=== PATIENT | female | born 2000 | race Two or more races ===

== ENCOUNTER 2025-02-11 09:30 | Emergency (ER) | payer MEDICAID, SELFPAY ==
[2025-02-11 10:01] VITALS: BP 116/71; PULSE 89; RESP 16; TEMP 37.1; O2SAT 98
--- NOTE | 2025-02-11 10:11 | XR_ITS ---
Examination: Complete OB ultrasound greater than 14 weeks Date and time of exam: February 11, 2025, 10:22 AM Indications: 18 week by history with intermittent pelvic cramping beginning 3 days ago Findings: Viable intrauterine single fetus with single amniotic sac presentation breech Cardiac motion 153 BPM Placenta anterior grade 1. Umbilical cord insertion 3 vessel seen Amniotic fluid normal spine maternal right Cervix 3.0 cm Right ovary 3.1 cm arterial flow. Left ovary 3.5 cm arterial flow. Composite estimated gestational age based on BPD, head circumference, abdominal circumference, femur length is 19 weeks 0 days Estimated weight 264 g. Survey of intracranial anatomy, spinal anatomy, abdominal anatomy, four-chamber heart performed with no abnormalities identified. Impression: Viable intrauterine gestation breech presentation Placenta anterior grade 1 no abruption.
--- NOTE | 2025-02-11 10:12 | EDNOTE_ITS ---
<Statement entered by Caridad Santana MD - 02/11/25 17:35> As co-signing physician, I was present and available for consult prn. I concur with the plan and care as documented by the midlevel provider. ED General RME/HPI General Chief complaint: Abdominal Pain Stated complaint: LOWER ABD PAIN Time Seen by Provider: 02/11/25 09:52 Arrival date/time: 02/11/25 09:30 CC: Lower abdominal pain HPI ongoing for the past 3 to 4 days. The patient is a G1, P1 at estimated 19 weeks with no follow-up. Dad denies any vaginal bleeding vaginal discharge low back pain stating that she has some mild cramping in her abdomen. Related Data Previous Rx's ?Medication ?Instructions ?Recorded cephalexin 500 mg capsule 500 mg PO BID #14 caps 02/11 Allergies Allergy/AdvReac Type Severity Reaction Status Date / Time No Known Allergies Allergy Verified 02/11/25 09:32 Review of Systems Review of Systems Narrative Review of Systems: GEN: No fever, no chills, no weight loss EYES: No discharge, no visual changes, no pain HEENT: No ear pain, no congestion, no sore throat PULM: No shortness of breath, no cough, no congestion CV: No chest pain, no dyspnea on exertion, no palpitations GI: No nausea, no vomiting, no diarrhea, no pain, no constipation : No frequency, no urgency, no dysuria MUSC/SKEL: No joint pain, no back pain SKIN: No rash PSYCH: No hallucinations, no depression HEME/LYMPH: No easy bleeding or bruising tendencies NEURO: No weakness, no headache Past Medical History Social History SMOKING STATUS: Never smoker ED Exam Narrative Physical exam: [General: Not in any acute distress Head normocephalic HEENT: Within acceptable limits Neck is supple nontender Chest equal chest rise nontender to palpation Respiratory: Clear to auscultation no wheezes crackles or rubs CV: Rate rhythm is regular no murmurs rubs or clicks Abdomen is distended secondary to , soft nontender, pain is described with motion of her hands at the side of the base of her distended abdomen in the both right and left lower quadrant. Back: No CVA tenderness no spinous process tenderness from cervical spine thoracic and lumbar spine Skin: Intact no petechiae rash induration ulceration or crepitus Extremities: Moving all extremity against resistance cap refill less than 2 seconds neurosensory intact Neuro: Awake alert oriented x3 Glascow coma 15 no focal deficits] Course Quality Measures none Orders Category Date Time Status US OB >= 14 weeks Fetus Stat Exams 02/11/25 10:11 Completed Urinalysis Stat Lab 02/11/25 10:18 Completed Vital Signs Vital signs: Vital Signs Temperature 98.8 F 02/11/25 10:01 Pulse Rate 89 02/11/25 10:01 Respiratory Rate 16 02/11/25 10:01 Blood Pressure 116/71 02/11/25 10:01 Pulse Oximetry (%) 98 02/11/25 10:01 Oxygen Delivery Method Room Air 02/11/25 10:01 [facility] Patient data External records reviewed:: [facility] previous records Clinical information provided by:: none Social determinants that could affect healthcare access:: none Patient has the following chronic illnesses:: None How is presenting disease/condition affected by chronic disease/condition?: uneffected by Evaluation data The following diagnostics were reviewed and interpreted by me:: lab results and radiology exam(s) Lab and/or radiology exams considered but not ordered:: Ultrasound shows a single IUP 19 weeks 0 days Interpretation Summary: Suspect round ligament pain however we will do an ultrasound to determine that the status. Medications Medications considered but not ordered:: None Medication administrations:: None Consultations Consultation(s) initiated? (list below): No Diagnosis Differential Diagnosis ED Complaint MDM: SAB multiple gestation IUP Most likely diagnosis given after review of the tests above:: Round ligament pain IUP UTI Admission Indicated Admission indicated?: not indicated Explain why admission is indicated or not indicated:: Stable for outpatient follow-up Admission Request Was there a request for admission?: No Disposition Plan Disposition Plan: Discharge Discharge Attestation Discharge Attestation: The patient and all family members were given an opportunity to ask questions and understood the discharge instructions. Discharge instructions specifically effects, indications for sooner follow up or return to the emergency department, and the expected course of current diagnosis. Patient condition: Stable Medical Decision Making Differential Diagnosis Differential Diagnosis: SAB multiple gestation IUP Lab Data Labs: Lab Results 02/11/25 Range/Units 10:18 Ur Collection Type Clean Catch Urine Color Yellow (Lt Yel-Yel) Urine Clarity Turbid A (Clear/Hazy) Urine pH 7.5 H (5.0-7.0) Ur Specific [place] 1.017 (1.001-1.035) Urine Protein Negative (Neg - Trace) Urine Glucose (UA) Negative (Negative) Urine Ketones Negative (Negative) Urine Blood Negative (Negative) Urine Nitrite Negative (Negative) Urine Bilirubin Negative (Negative) Urine Urobilinogen (Auto) Negative (0.0-1.0) mg/dL Ur Leukocyte Esterase Positive (Negative) Urine RBC 1 (0-3) /hpf Urine WBC 10 H (0-5) /hpf Ur Squamous Epith Cells 33 H (0-5) /hpf Calcium Oxalate Crystal 1+ A (None) Amorphous Crystals Present A (Absent) Urine Bacteria 2+ A (None) Urine Yeast (Budding) Present A (None) Discharge Plan Plan Patient Disposition: HOME (Self Care) Patient condition on transfer: Stable Prescriptions/Referrals Prescriptions/Med Rec: New cephalexin 500 mg capsule 500 mg PO BID Qty: 14 0RF Problem List Clinical Impression: Pain of round ligament, , UTI (urinary tract infection) Patient/Caregiver Discharge Instructions Education Materials: Adapting to Second ..., ED CYSTITIS Female Adult Additional Instructions: Take medication as prescribed follow-up with an MANUFACTURING AUTOMATION ENGINEER as quickly as possible. Print Language: Mongolian Stand Alone Forms: Dee Award Info., Work/School Release, Patient Portal Info Letter PA/KAREN Supervising Physician PAULINE/KAREN Supervising Physician: Leonidas Pelaez ENP
[2025-02-11 10:27] LABS: Collection Type, Urine Clean Catch
[2025-02-11 11:06] LABS: Bacteria,Urine 2+; Bilirubin,Urine Negative (Negative); Blood,Urine Negative (Negative); Budding Yeast,Urine Present; Clarity,Urine Turbid (Clear/Hazy); Color,Urine Yellow (Lt Yel-Yel); Glucose, Urine Negative (Negative); Ketones,Urine Negative (Negative); Leukocyte Esterase,Urine Positive (Negative); Nitrite,Urine Negative (Negative); PH,Urine 7.5 (5.0-7.0); Protein,Urine Negative (Neg - Trace); Specific Gravity,Urine 1.017 (1.001-1.035); Squamous Epithelial Cell,Urine 33 /hpf (0-5); Urobilinogen,Urine Negative mg/dL (0.0-1.0)
[2025-02-11 11:13] LABS: Amorphous Crystals,Urine Present (Absent); Calcium Oxalate Crystals,Urine 1+; RBC,Urine 1 /hpf (0-3); WBC,Urine 10 /hpf (0-5)
== END 2025-02-11 11:30 | disposition home or self-care (01) ==
LOC: SERX 11:21
PROVIDERS: Registered Nurse General Practice; Emergency Provider Emergency Medicine; PCP Family Medicine
DX: O26.892 Other specified pregnancy related conditions, second trimester (principal); R10.2 Pelvic and perineal pain; O23.42 Unspecified infection of urinary tract in pregnancy, second trimester; N30.90 Cystitis, unspecified without hematuria; Z3A.19 19 weeks gestation of pregnancy
CPT/HCPCS: 76805; 81001; 99284

== ENCOUNTER 2025-06-21 03:19 | Inpatient (IN) | payer MEDICAID, SELFPAY ==
[2025-06-21] VITALS (28 sets, daily range): BP systolic 107–130; BP diastolic 53–83; PULSE 57–94; RESP 16–100; TEMP 36.6–36.9; O2SAT 91–98; BMI 26.8
--- NOTE | 2025-06-21 05:34 | XR_ITS ---
Examination: Complete OB ultrasound greater than 14 weeks Date and time of exam: June 21, 2025 0609 hours INDICATIONS: Labor contractions beginning 2:00 AM this morning Findings: Viable intrauterine single fetus with single amniotic sac presentation cephalic Cardiac motion 148 BPM Placenta anterior grade 3 Umbilical cord insertion seen Amniotic fluid index 6.8 cm spine anterior Cervix 3.0 cm Ovaries obscured by bowel gas. Composite estimated gestational age based on BPD, head circumference, abdominal circumference, femur length is 37 weeks 2 days Estimated weight 3026 g. Survey of intracranial anatomy, spinal anatomy, abdominal anatomy, four-chamber heart performed with no abnormalities identified. Impression: Viable intrauterine gestation cephalic presentation.
[2025-06-21] MEDS: fentaNYL CIT INJ 50 mCg/ML AMP 2ML 100 MCG IVP ×2 (06:02→08:10)
--- NOTE | 2025-06-21 06:39 | PD.LDHP ---
Documentation for date of: 06/21/25 OB Labor/Induct. HPI History of Present Illness Chief complaint: Contractions : 1 Para: 0 Term pregnancies: 0 pregnancies: 0 Living children: 0 History of Abortions: Spontaneous and Elective: 0 History of Vaginal deliveries: 0 History of sections: No History of : No [place]: 07/08/25 History of present illness: 25-year-old G1, P0 at 37 weeks and 4 days presented to labor and delivery triage with contractions that started last night. On presentation patient was noted to be 1 to 2 cm with 50% effacement. She was For 2 hours and rechecked and she progressed to 6 cm with 90% effaced and -2 station. Patient denied any leakage of fluid or vaginal bleeding reported adequate movements. Patient received care at [facility]. Records are available for review. History of Present Adequate Care: Yes Labs Labs: Positive: Rubella Titre, Negative: RPR, Hepatitis B, HIV, Chlamydia, Gonorrhea and Group Beta Strep and Unknown: Herpes Type 1 and Herpes Type 2 Review of Systems Review of Systems Systems Reviewed: All systems reviewed, normal except as documented Past Medical History Surgical History SURGICAL: Negative Section Meds Home Medications and Allergies Allergies Allergy/AdvReac Type Severity Reaction Status Date / Time No Known Allergies Allergy Verified 06/21/25 03:24 OB Exam Physical Exam Vital signs: Temp Pulse Resp BP Pulse Ox 98.1 F 81 18 130/83 98 06/21/25 03:23 06/21/25 03:32 06/21/25 03:23 06/21/25 03:32 06/21/25 04:17 Constitutional Constitutional: no acute distress Routine HEENT Exam Head: Present normocephalic and atraumatic Eye: Present EOMI and PERRL ENT: Present mucous membranes moist Routine Neck Exam Neck: Present supple and trachea midline Routine Cardiovascular Exam Cardiovascular: Present RRR Routine Abdominal Exam Abdominal: Present soft and normoactive bowel sounds Detailed Labor and Delivery Exam Dilation (cm): 6 Effacement (%): 90 Cervix position: mid station: -2 Presentation: Vertex Membranes: intact Baseline heart rate: 135 monitor accelerations: 15x15 monitor decelerations: None retort feeder ground bone variability: Average (6-10) Routine Extremities Exam Extremities: Present full ROM Routine Skin Exam Skin: Present intact, dry and warm Routine Neurological Exam Neurological: Present alert, oriented X3 and CN II-XII intact Routine Psychiatric Exam Psychiatric: Present normal affect and normal thought process OB Assessment & Plan Assessment and Plan (1) Uterine contractions: Status: Acute (2) Active labor at term: Status: Acute Assessment and plan: Admit to inpatient status on delivery Routine admission orders Spontaneous labor for now as patient is making progress, oxytocin augmentation if needed Anticipate vaginal delivery
[2025-06-21 06:54] LABS: Amphetamine/Metham Scrn,Ur OB Negative (Negative); Benzoylecgonine Screen, Ur OB Negative (Negative); Opiate Screen,Urine OB Negative (Negative); THC Screen,Urine OB Negative (Negative)
[2025-06-21 06:56] LABS: Basophils # (Auto) 0.1 Thou/mm3 (0.0-0.2); Basophils % (Auto) 0 % (0-2.5); Eosinophils # (Auto) 0.0 Thou/mm3 (0.0-0.5); Eosinophils % (Auto) 0 % (0-10); Hematocrit 39.8 % (36.0-46.0); Hemoglobin 14.1 g/dL (12.0-16.0); Immature Granulocytes Auto 0.08 Thou/mm3 (0.00-0.00); Lymphocytes # (Auto) 2.6 Thou/mm3 (1.0-4.8); Lymphocytes % (Auto) 17 % (10-50); Mean Corpuscular HGB Conc 35.4 g/dl (31.0-37.0); Mean Corpuscular Hemoglobin 32.0 pg (25.0-35.0); Mean Corpuscular Volume 90 fL (80-100); Monocytes # (Auto) 1.1 Thou/mm3 (0.0-0.8); Monocytes % (Auto) 7 % (0-12); Neutrophils # (Auto) 11.5 Thou/mm3 (1.8-7.7); Neutrophils % (Auto) 75 % (37-80); Nucleated Red Blood Cell # 0.00 Thou/mm3 (0.00-0.00); Nucleated Red Blood Cell % 0 /100 WBC (0); Platelet Count 179 Thou/mm3 (140-440); RDW Standard Deviation 44.1 fL (36.4-46.3); Red Blood Count 4.41 Miln/mm3 (4.00-5.20); White Blood Count 15.3 Thou/mm3 (3.6-11.0)
[2025-06-21 07:35] LABS: Syphilis Nonreactive (Nonreactive)
[2025-06-21] MEDS: LIDOCAINE HCL 1% 20 ML VIAL INFL (08:05)
[2025-06-21] MEDS: OXYTOCIN in NS 20 units 20 UNIT/1,000 ML BAG 125 UNIT IV (08:05)
[2025-06-21] MEDS: IBUPROFEN TAB 400 MG TABLET 800 MG PO (08:15)
[2025-06-21] MEDS: BENZO/LANO/ALOE (Dermoplast) 60 GM CAN 1 SPRAY TOP (08:15)
[2025-06-21 15:43] LABS: Basophils # (Auto) 0.0 Thou/mm3 (0.0-0.2); Basophils % (Auto) 0 % (0-2.5); Eosinophils # (Auto) 0.0 Thou/mm3 (0.0-0.5); Eosinophils % (Auto) 0 % (0-10); Hematocrit 37.5 % (36.0-46.0); Hemoglobin 12.9 g/dL (12.0-16.0); Immature Granulocytes Auto 0.12 Thou/mm3 (0.00-0.00); Lymphocytes # (Auto) 1.9 Thou/mm3 (1.0-4.8); Lymphocytes % (Auto) 9 % (10-50); Mean Corpuscular HGB Conc 34.4 g/dl (31.0-37.0); Mean Corpuscular Hemoglobin 31.3 pg (25.0-35.0); Mean Corpuscular Volume 91 fL (80-100); Monocytes # (Auto) 1.5 Thou/mm3 (0.0-0.8); Monocytes % (Auto) 7 % (0-12); Neutrophils # (Auto) 17.2 Thou/mm3 (1.8-7.7); Neutrophils % (Auto) 83 % (37-80); Nucleated Red Blood Cell # 0.00 Thou/mm3 (0.00-0.00); Nucleated Red Blood Cell % 0 /100 WBC (0); Platelet Count 173 Thou/mm3 (140-440); RDW Standard Deviation 44.1 fL (36.4-46.3); Red Blood Count 4.12 Miln/mm3 (4.00-5.20); White Blood Count 20.8 Thou/mm3 (3.6-11.0)
--- NOTE | 2025-06-21 21:27 | PD.LDDELS ---
Data (Haney) Data Hx Section: No Maternal Blood Type: O Pos Rubella Titre: Positive RPR: Non-reactive Labs: Negative: RPR, Hepatitis B, HIV, Chlamydia, Gonorrhea and Group Beta Strep : 1 Term: 0 : 0 Livin Abortions: Spontaneous & Theraputic: 0 Delivery Data (Haney) Labor Data Initiation of labor: Spontaneous Induction/Augmentation Agent: None ROM date: 06/21/25 ROM time: 07:21 Amniotic membrane rupture type: Spontaneous Amniotic fluid description: Clear Delivery Data EDC: 07/09/25 EDC calculated by:: LMP/early US confirmation Date of arrival to unit: 06/21/25 Onset of labor date: 06/21/25 Onset of labor time: 05:30 Complete dilation date: 06/21/25 Complete dilation time: 07:35 delivery date: 06/21/25 delivery time: 07:58 Gestational age (weeks): 37 Gestational age (days): 4 Placenta delivery date: 06/21/25 Placenta delivery time: 08:04 Stage 1 total time: Labor - Stage 1 Duration 2 hours and 5 minutes Delivered by: Matias URBINA Delivery nurse: Shi Parker RN [place] nurse: Tabby Lala RN Mill[place] Department Manager at delivery: No Support person(s) at delivery: FOB, mother of patient Other staff at delivery: Tabby Dempsey RN, Mitra Alcantara RN Delivery Method Delivery method: Normal Vaginal Delivery Presentation: Vertex position: OA Anesthesia Type Anesthesia Type: Local Delivery Room Medications Delivery room medications: Pitocin 20 u IV Placenta Placenta delivery description: Spontaneous Cord blood sent to lab: Yes cord blood collection: Cord Blood Type Episiotomy Episiotomy description: None Lacerations #1: Perineal: 2nd degree Perineal repair Sutures used for repair: 4.0 Chromic and other (2-0 Chromic) EBL Estimated blood loss (ml): 100 Umbilical Cord cord description: 3 Vessels Additional Procedures The patient is a 25-year-old G1, P0 who presented to the hospital in the middle night by Dr. Yang 06/21/25 reporting painful labor. She was 6 cm on presentation and progressed to 7 cm about 7:00 in the morning when I took over her care. Her care is up-to-date in the chart with Dr Hung. The patient SROMed at 0721 and was progressed to complete by 0735. She went on to push approximately 25 minutes delivering a liveborn female at 7:58 AM on 06/21/2025. Findings: Liveborn female in the AUGIE presentation with no nuchal cord and no meconium. Apgars were 8 and 9. Weight was 6 pounds 15 ounces. The baby was vigorous at and placed directly on mom's chest. After 1 to 2 minutes. The cord was clamped and cut. Cord gases were saved. Cord blood was sent. The placenta was complete spontaneous grossly normal delivering within 5 minutes of the baby delivering. The patient sustained a second-degree perineal laceration repaired under local anesthesia with lidocaine in a standard fashion using 2-0 chromic and 4-0 chromic. Complications were none. Condition: Both mom and were in stable condition in the delivery room. Complications Complications: None [place] Data (Haney) Data order: 1 's gender: Female weight (gms): 3150 g Weight (pounds): 6 lbs and 15.1 ozs [place] length: 50.8 cm 1 minute: 8 5 minutes: 9
[2025-06-21] MEDS: DOCUSATE SOD 100 MG CAPSULE PO (21:30)
[2025-06-22 00:11] VITALS: BP 110/67; PULSE 77; RESP 16; TEMP 36.9; O2SAT 96
[2025-06-22 03:48] VITALS: BP 109/67; PULSE 73; RESP 16; TEMP 36.9; O2SAT 96
--- NOTE | 2025-06-22 06:41 | ESPR_ITS ---
RE: ELVER ATKINSON : 2000 DATE OF SERVICE: 06/22/2025 SUBJECTIVE: day #1, patient denies any problem or complaint. OBJECTIVE: Vital Signs: Blood pressure 109/67, heart rate 73, respirations 16, temperature is 98.4, and pulse oximetry is 96% on room air. Lungs: Clear to auscultation bilaterally. Heart: Regular rate and rhythm. Abdomen: Fundus is firm. Extremities: Nontender. LABORATORY DATA: Hemoglobin predelivery is 14.1, postdelivery is 12.9. ASSESSMENT: day #1, status post spontaneous vaginal delivery. PLAN: Discharge home when baby is cleared. Discharge instructions given. Follow up in the office in 6 weeks. DT: 06:32:24 TT: 06:39:00 Ref: [id number] - TID: [id number]
[2025-06-22 08:00] VITALS: BP 107/66; PULSE 71; RESP 16; TEMP 36.8; O2SAT 98
--- NOTE | 2025-06-22 08:57 | PC.CC ---
Addendum entered by Yamile Lemus 06/22/25 09:14: SW provided psychoeducation regarding baby blues and Post- Depression, as well as counseling groups at [facility]. SW provided community resources: Warm Line and Crisis Line. Original Note: Yamile PARDO received a referral from bedside SHIRA Ulrich for late to care at 18 weeks. ELECTRONIC SALES AND SERVICE TECHNICIAN, made [id number]-[id number] contact with the patient to complete initial assessment of being late to care. At bedside was patient's , Miquel eMnard . Patient provided verbal consent for to remain in the room during assessment. ELECTRONIC SALES AND SERVICE TECHNICIAN introduced herself, role in the agency, reason for visit, and discussed limits of confidentiality. Patient appeared alert and oriented to self, time, place, and situation. Patient appears stated age. Patient made good eye contact. Patient?s attitude appeared pleasant and cooperative. Patient?s behavior appeared ordinary. Patient?s mood appears ordinary. No signs of delusions or hallucinations. Patient confirmed information on demographics and reports to living with her who is also listed as her next of kin. Patient reports she did not receive care in the [place] until 18 weeks as when she found out she was she was 5 weeks and in [place]. Patient reports she suffered from morning sickness and was not able to travel to the [place] until she was 16 weeks and was able to obtain an appointment at 18 weeks. Per patient she received regular care upon establishing care. Patient reports she has all the supplies she needs upon discharge. Patient reports she plans on nursing and bottle feeding her new born. Her support system upon being discharged will be her mother, Tammie Mcgee and her . Patient is not receiving any assistance such as WIC or SNAP. CHAR, provided update to bedside SHIRA Ulrich.
[2025-06-22] MEDS: DOCUSATE SOD 100 MG CAPSULE PO (10:22)
== END 2025-06-22 15:40 | disposition home or self-care (01) | DRG 560 ==
LOC: S4SX 08:02 → S4NX 10:29
PROVIDERS: Obstetrics & Gynecology; Admitting Provider Obstetrics & Gynecology; Visit Provider Advanced Practice Midwife
DX: O70.1 Second degree perineal laceration during delivery (principal); Z37.0 Single live birth; Z3A.37 37 weeks gestation of pregnancy
CPT/HCPCS: 36415; 59025; 59409; 76805; 80307; 85025; 86780; 86850; 86900; 86901; J2590; J3010; J3490; A9270